=== PATIENT | female | born 1995 | race Caucasian/White ===

== ENCOUNTER 2018-06-09 00:11 | Emergency (ER) | payer MEDICAID ==
[2018-06-09 01:07] VITALS: BP 120/75
--- NOTE | 2018-06-09 02:56 | ED Physician Documentation ---
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 she says the amount of bleeding is typical for her period, but the cramping pain is not. Review of Systems Constitutional: reports: Reviewed and negative GI: reports: Reviewed and negative : reports: Vaginal bleeding. denies: Dysuria, Frequency PD PAST MEDICAL HISTORY - Past Medical History Past Medical History: No - Past Surgical History Past Surgical History: No - Present Medications Home Medications: Ambulatory Orders Medication Instructions Recorded Confirmed Levonorgestrel-Ethin Estradiol 1 tab PO DAILY 01/12/16 01/12/16 [[place]-28 Tablet] Methocarbamol [Robaxin] 500 mg PO TID #25 tablet 01/12/16 predniSONE [Deltasone] 40 mg PO DAILY 5 Days tablet 01/12/16 - Allergies Allergies/Adverse Reactions: Allergies Allergy/AdvReac Type Severity Reaction Status Date / Time cefprozil [From Cefzil] Allergy Hives Verified 06/09/18 00:32 clarithromycin [From Biaxin] Allergy Rash Verified 06/09/18 00:32 - Social History Does the pt smoke?: No Smoking Status: Never smoker Does the pt drink ETOH?: No Does the pt have substance abuse?: No - Immunizations Immunizations are current?: Yes PD ED PE NORMAL - Vitals Vital signs reviewed: Yes - General General: Alert and oriented X 3, No acute distress, Well developed/nourished - Abdomen Abdomen: Soft, Non tender - Back Back: No CVA TTP PD ED PE EXPANDED - Female Female : Normal external, Vaginal Bleeding (scant), [place] Attendant present, Other ( IUD removed with gentle traction of strings clamped with ringed forceps) Results - Vitals Vitals: Oxygen O2 Source Room air - Labs Labs: Laboratory Tests 06/09/18 03:05 Ur Specific [place] 1.010 Urine HCG, Qual NEGATIVE PD MEDICAL DECISION MAKING - ED course Complexity details: reviewed results, considered differential, d/w patient ED course: patient is more concerned about ectopic than symptom control ( symptoms are mild, she declines analgesics). HCG negative. I offered to take out IUD if she prefers, and she does want IUD removed. I explained that symptom resolution will likely not be immediate, and reminded her that she will no longer have contraceptive effect once the IUD is removed. - Sepsis Event Vital Signs: Oxygen O2 Source Room air Departure - Departure Disposition: 01 Home, Self Care Clinical Impression: Pelvic pain Condition: Good Instructions: ED Pelvic Pain [facility] Follow-Up: Ginna Holder MD [Primary Care Provider] - Discharge Date/Time: 06/09/18 04:11
[2018-06-09 03:16] LABS: HCG UR QUAL NEGATIVE
== END 2018-06-09 04:11 | disposition home or self-care (01) ==
LOC: ED 00:11
DX: R10.2 Pelvic and perineal pain (principal); Z96.0 Presence of urogenital implants; Z97.5 Presence of (intrauterine) contraceptive device
CPT/HCPCS: 81025; 99282; 99283